=== PATIENT | male | born 1990 | race Caucasian/White ===

== ENCOUNTER 2017-05-20 12:42 | Outpatient (CLI) | payer OTHER | END 2017-05-20 12:43 | disposition home or self-care (01) | LOC: DI 12:42 | PROVIDERS: ATTEND Family Medicine | DX: R00.2 Palpitations (principal) | CPT/HCPCS: 93306 ==

== ENCOUNTER 2018-03-21 10:15 | Day surgery (SDC) | payer OTHER ==
[~2018-03-21 10:15] MED LIST: cefTRIAXone 1 GM VIAL ONE
[2018-03-21] MEDS ORDERED: LACTATED RINGERS 1,000 ML IV ONE (10:41)
--- NOTE | 2018-03-21 11:52 | ANESTHESIA ---
Pre-Anesthesia VS, & Labs - Diagnosis shoulder labral tear - Procedure right shoulder arthroscopy Vital Signs: Temp Pulse Resp BP Pulse Ox 36.7 C 86 16 155/73 H 98 03/21/18 10:29 03/21/18 10:29 03/21/18 10:29 03/21/18 10:29 03/21/18 10:29 Height 6 ft 4 in Weight (kg) 97.52 kg - NPO >8 hours Home Medications and Allergies Home Medications: Ambulatory Orders Pantoprazole [Protonix] 40 mg PO DAILY 03/05/18 Pantoprazole [Protonix] 40 mg PO DAILY 03/05/18 Allergies/Adverse Reactions: Allergies Allergy/AdvReac Type Severity Reaction Status Date / Time No Known Drug Allergies Allergy Verified 03/05/18 13:40 Anes History & Medical History - Anesthetic History Anesthesia Complications: reports: No previous complications Family history of Anesthesia Complications: Denies Family history of Malignant Hyperthermia: Denies - Medical History Cardiovascular: reports: None Pulmonary: reports: None Gastrointestinal: reports: GERD Urinary: reports: None Musculoskeletal: reports: Other Skin: reports: None Exam General: Alert Dental: WNL Mouth Openin Fingerbreadth Neck Mobility: Normal Mallampati classification: I Thyromental Distance: greater than 6 cm Respiratory: Lungs clear, Normal breath sounds, No respiratory distress, No accessory muscle use Cardiovascular: Normal S1, Normal S2, No murmurs Mental/Cognitive Status: Alert/Oriented X3, Normal for patient Cognitive Status: Within normal limits Plan Anesthesia Type: General Consent for Procedure(s) Verified and Reviewed: No Code Status: Attempt Resuscitation ASA classification: 2-Mild systemic disease Is this case an emergency?: No
[2018-03-21] MEDS ORDERED: ROPIVACAINE 0.5% PF 20 ML VIAL ONE (12:22)
[2018-03-21] MEDS ORDERED: BUPIVACAINE 0.25% PF 30 ML VIAL ONE (12:26)
[2018-03-21] MEDS ORDERED: EPINEPHrine 1 MG/ML AMP ONE (12:26)
[2018-03-21] MEDS ORDERED: BUPIVACAINE 0.25% PF 30 ML VIAL SUBQ ONE (14:03)
[2018-03-21] MEDS ORDERED: EPINEPHrine 1 MG/ML AMP IR ONE (14:03)
[2018-03-21] MEDS ORDERED: ACETAMINOPHEN 1,000 MG/100 ML 100 ML IV ONE (14:17)
[2018-03-21] MEDS ORDERED: LIDOCAINE-MPF 2% 5 ML VIAL IM ONE (14:17)
[2018-03-21] MEDS ORDERED: PROPOFOL 200 MG/20 ML VIAL IVP ONE (14:17)
[2018-03-21] MEDS ORDERED: fentaNYL 100 MCG/2 ML VIAL IVP ONE (14:17)
[2018-03-21] MEDS ORDERED: ROCURONIUM 50 MG/5 ML VIAL IVP ONE (14:17)
[2018-03-21] MEDS ORDERED: ONDANSETRON 4 MG/2 ML VIAL IVP PRN (15:33)
[2018-03-21] MEDS ORDERED: oxyCODONE 5 MG TABLET PO PRN (15:33)
--- NOTE | 2018-03-21 15:36 | OPERATIVE REPORT ---
Operative Report - General Procedure Date: 03/21/18 Planned Procedure: right shoulder arthroscopic labral repair and capsular shift Pre-Op Diagnosis: right shoulder posterior labral tear Procedure Performed: Right shoulder arthroscopic labral repair with capsular shift Post Op Diagnosis: same - Procedure Note Primary Surgeon: alfredo Secondary Surgeon: jenny Estimated Blood Loss (mL): 5 Complications: none - Other Other Information/Narrative: DETAILED PROCEDURE: Labral repair from 630 to 930 IMPLANTS: Arthrex knotless suture tack x3 POSTOPERATIVE PLAN: 0-2 weeks-Sling at all times. Pendulum exercises 5 times per day. 2-6 weeks-Passive range of motion with the following limits: FF to 120, ER to unlimited, abduction to 90. Must keep palm up when in FF 6-12 weeks-Active range of motion in all planes without limitation. Isometric rotator cuff strengthening is allowed 12-16 weeks-Gradually increase strengthening 16 weeks and beyond-Introduce dynamic activities EXAMINATION UNDER ANESTHESIA: ROM: Normal Anterior load and shift: Normal Posterior load and shift: Grade 2 with click Inferior sulcus: Normal ARTHROSCOPIC FINDINGS: Rotator interval: Normal Biceps tendon & SLAP: Normal Subscapularis: Normal Rotator Cuff: Normal HAGL: Normal Labrum: Posterior tear from 630-930. It was repaired with 3 anchors Glenoid Cartilage: Glad that in the same location as the labral tear. Loose cartilage was debrided Humeral Head Cartilage: Reverse Hill-Sachs lesion that was not engaging. No treatment INDICATION FOR SURGERY: 27-year-old male who is right-hand dominant and right shoulder affected he had an injury to the shoulder described as a subluxation episode 7 years ago and has had 5 recurrent subluxation episodes since that time. He additionally has pain when the posterior labrum is loaded. He is an avid weight software security consultant and his shoulder pain and instability is limiting his activities. Nonoperative managment failed to resolve symptoms. The risks, benefits, and alternatives were discussed. Risks included pain, bleeding, infection, damage to nearby structures, lack of symptom relief, implant complications, stiffness, need for further surgeries, DVT, PE, stroke, and even . He signed a written consent form. PROCEDURE IN DETAIL: The patient was met in the preoperative holding on the day of the procedure. Operative extremity was signed. Consent was verified. He desired to proceed. Regional anesthesia was obtained in the preoperative area. They were brought to the operating room and surrendered to anesthesia. Once general anesthesia was obtained they were placed in the lateral decubitus position with the operative side up. An axillary roll was placed and all bony prominences were well-padded. They were then prepped and draped in the standard sterile fashion. A surgical timeout was held to confirm the patient procedure, identity, procedure, laterality, allergies, images, and antibiotics. All were in agreement we proceeded. Balanced suspension was applied and a standard diagnostic arthroscopy was perfo rmed utilizing posterior and anterior superior portal sites. The anterior superior portal site was created under direct visualization. The findings of the diagnostic arthroscopy can be found above. A mid glenoid portal was then created under direct visualization bordering the subscapularis tendon. I then used a combination of high and low angled elevators to develop the labral tear and release it from off the glenoid neck. I then used to the pineapple rasp to finalize my release and abraded the bone to a bleeding bed. A sucker shaver was placed in the interval to debride any loose tissue and further abrade the glenoid neck. Any loose cartilage was debrided at that time. I then established a percutaneous 7:00 portal utilizing the Arthrex system. I then sequentially placed anchors at the 7:00 o'clock position. The suture was passed using an appropriate 45 degree suture lasso. The labrum was secured using knotless technique. Appropriate tension was confirmed with a probe and t he excess suture was cut. Using the same technique additional anchors were placed at 8:00 and 9:00 positions. Proper capsular tension was restored and a labral bumper was recreated. Balanced suspension was then released and final images were taken showing the humeral head centered in the glenoid. The portal sites were then closed with 3-0 Monocryl buried. Mastisol and Steri- Strips were applied. A sterile dressing and a sling was applied. He was awakened and transferred to the recovery room.
[2018-03-21] MEDS ORDERED: SCOPOLAMINE PATCH TOP ONE (16:41)
[2018-03-21] MEDS ORDERED: PROMETHAZINE 25 MG/1 ML VIAL ONE (16:54)
[2018-03-21 17:28] VITALS: BP 142/48
== END 2018-03-21 10:16 | disposition home or self-care (01) ==
LOC: SDS 10:15
PROVIDERS: ATTEND Orthopaedic Surgery
PROC: 0RQJ4ZZ Repair Right Shoulder Joint, Percutaneous Endoscopic Approach (ICD-10-PCS; principal; 2018-03-21 11:30)
DX: S43.491A Other sprain of right shoulder joint, initial encounter (principal); M24.411 Recurrent dislocation, right shoulder
CPT/HCPCS: 29999; A9270; C1713; J0131; J2795; J3490; J7120

== ENCOUNTER 2018-08-06 08:11 | Emergency (ER) | payer OTHER ==
--- NOTE | 2018-08-06 08:15 | ED Physician Documentation ---
PD HPI NVD - Stated complaint Stated Complaint: UNABLE TO EAT/VOMITING - History obtained from History obtained from: Patient - History of Present Illness Timing - onset: How many weeks ago (1) Timing - duration: Weeks (1or longer) Timing - details: Gradual onset, Waxing and waning (He states he has been having "stomach problems" for several months. He previously had been on Protonix for a keisha reduction related to reflux. This had helped him with symptoms quite a bit. He has been having frequent nausea as well as some intermittent crampy abdominal pains and feeling of constipation over the last few months. He had been to his primary care provider and had some stool softeners of docusate and also had MiraLAX added [id number] I believe. He states he does have soft stool intermittent the with formed stool otherwise. He denies having to push hard or feeling of rectal fullness. The last week or so he has been having a lot more cramping intermittently in the upper abdomen and feeling of gassiness. He has been nauseated with easy satiety and a fullness with eating. He states he has had less intake over the last week due to that. He is still able to drink fluids. He does get nauseous with those but is more tolerated. He does a lot of protein shakes for working out. He states he did eat a couple of meals yesterday with nausea but no vomiting. He did have a vomiting episode today.) Associated symptoms: Abdominal pain (intermittent crampy), Loss of appetite. No: Fever, Chest pain, Melena, Hematochezia Contributing factors: No: Sick contact, Bad food, Travel Similar symptoms before: No diagnosis (GERD and gastritis, but work up ongoing for other problems.) Recently seen: Clinic (He has been to his primary care several times in the last month or so related to stomach problems. They has a referral for a GI consult which the patient states is not until October. He has had testing of stool studies for H. pylori. He has had blood tests for celiac disease and inflammatory problems. He had been on Protonix and was switched to omeprazole a week ago.) Review of Systems Constitutional: denies: Fever Nose: denies: Rhinorrhea / runny nose, Congestion Throat: denies: Sore throat Respiratory: denies: Cough GI: reports: Nausea, Vomiting, Constipation (he feels he does not have regular BMs, but has had loose the past several days with use of docusate and miralax.). denies: Abdominal Swelling, Bloody / black stool : denies: Dysuria, Frequency PD PAST MEDICAL HISTORY - Past Medical History Cardiovascular: None Respiratory: None GI: GERD : None HEENT: Other Psych: None Musculoskeletal: Other Derm: None - Present Medications Home Medications: Ambulatory Orders Medication Instructions Recorded Confirmed Calcium Carbonate [Antacid] 0 mg 08/06/18 Docusate Calcium 0 mg 08/06/18 Lansoprazole [Prevacid] 15 mg PO DAILY #30 capsule 08/06/18 Omeprazole 0 mg 08/06/18 Ondansetron Odt [Zofran] 4 mg TL Q6H PRN #20 tablet 08/06/18 Polyethylene Glycol 3350 [Miralax] 17 gm PO DAILY PRN #1 bottle 08/06/18 Sucralfate [Carafate] 1 gm PO TID #40 tablet 08/06/18 - Allergies Allergies/Adverse Reactions: Allergies Allergy/AdvReac Type Severity Reaction Status Date / Time No Known Drug Allergies Allergy Verified 08/06/18 08:23 PD ED PE NORMAL - Vitals Vital signs reviewed: Yes - General General: Alert and oriented X 3, Well developed/nourished - HEENT HEENT: Pharynx benign - Neck Neck: Supple, no meningeal sign, No adenopathy - Cardiac Cardiac: RRR, No murmur - Respiratory Respiratory: Clear bilaterally - Abdomen Abdomen: Normal bowel sounds, Soft, Non tender, Non distended, No organomegaly - Male Male : Deferred - Rectal Rectal: Deferred - Back Back: No CVA TTP - Derm Derm: Normal color Results - Vitals Vitals: Vital Signs - 24 hr 08/06/18 08/06/18 08:20 09:37 Temperature 36.3 C L Heart Rate 87 78 Respiratory 16 18 Rate Blood Pressure 129/78 128/78 O2 Saturation 97 99 Oxygen O2 Source Room air PD MEDICAL DECISION MAKING - ED course Complexity details: considered differential (He is having nausea with less appetite and food intolerance. He had only 1 or 2 episodes of vomiting the past few days. He does sound likely to have some gastritis. There is no abdominal distention or fullness. The bowel sounds are somewhat hyperactive. There may be some element of constipation. There is no focal tenderness or no tenderness at all so I doubt imaging such as CT would be helpful. He has had testing for H. pylori the and gluten intolerance and celiac disease. I presume they did sed rate for inflammatory processes. He is getting a GI referral presumably for endoscopy which would make sense.), d/w patient Departure - Departure Disposition: 01 Home, Self Care Clinical Impression: Nausea & vomiting Qualifiers: Vomiting type: unspecified Vomiting Intractability: non-intractable Qualified Code(s): R11.2 - Nausea with vomiting, unspecified Gastritis Qualifiers: Gastritis type: unspecified gastritis Chronicity: unspecified Gastritis bl eeding: without bleeding Qualified Code(s): K29.70 - Gastritis, unspecified, without bleeding Condition: Stable Record reviewed to determine appropriate education?: Yes Instructions: ED Nausea Vomiting Follow-Up: TANO WARD [Primary Care Provider] - Prescriptions: Lansoprazole [Prevacid] 15 mg PO DAILY #30 capsule Ondansetron Odt [Zofran] 4 mg TL Q6H PRN #20 tablet PRN Reason: Nausea / Vomiting Polyethylene Glycol 3350 [Miralax] 17 gm PO DAILY PRN #1 bottle PRN Reason: Constipation Sucralfate [Carafate] 1 gm PO TID #40 tablet Comments: Your stomach symptoms could relate to side effects of the omeprazole. You could try lansoprazole, a different acid reducing medicine, and see if that does better. It may be just a your stomach is irritated and we can add to it sucralfate which coats the stomach to provide better or soothing of the stomach lining. Add ondansetron if needed for nausea. Regarding potential constipation, you could just take the MiraLAX that you have every the couple of hours through the day today and to you have really good loose bowel movement and then stop at that point. Then continue with a daily. Follow-up with your primary care if not improved over the next few days. Forms: Activity restrictions
[2018-08-06] MEDS ORDERED: MAG HYDROX/AL HYDROX/SIMETH 30 ML UDC PO STA (08:42)
[2018-08-06] MEDS ORDERED: ONDANSETRON ODT 4 MG TABLET TL STA (08:42)
[2018-08-06] MEDS ORDERED: LIDOCAINE VISCOUS 2% 15 ML UDC MM STA (08:42)
[2018-08-06 09:37] VITALS: BP 128/78
== END 2018-08-06 09:37 | disposition home or self-care (01) ==
LOC: ED 08:11
DX: K29.70 Gastritis, unspecified, without bleeding (principal)
CPT/HCPCS: 99283; A9270; Q0162

== ENCOUNTER 2018-09-24 19:30 | Emergency (ER) | payer OTHER ==
[2018-09-24 19:36] VITALS: BP 144/61
[2018-09-24] MEDS ORDERED: CHERRY SYRUP 10 ML UDC PO ONE (21:03)
[2018-09-24] MEDS ORDERED: DEXAMETHASONE 10 MG/ML VIAL PO STA (21:03)
[2018-09-24] MEDS ORDERED: PENICILLIN VK 250 MG TABLET PO STA (21:03)
--- NOTE | 2018-09-24 21:13 | ED Physician Documentation ---
History of Present Illness - Stated complaint Stated Complaint: FEVER/SORE THROAT - Chief complaint Chief Complaint: Heent - History obtained from History obtained from: Patient - History of Present Illness Timing: How many days ago (2) Pain level max: 7 Pain level now: 6 - Additonal information Additional information: 28-year-old male presents to the emergency department for sore throat for the past 2 days. Worsening today. Subjective fevers at home. No cough. No rhinorrhea or congestion. No nausea or vomiting. No abdominal pain. Worse with swallowing. Nothing makes it better. Review of Systems Nose: denies: Congestion GI: denies: Vomiting Skin: denies: Rash Musculoskeletal: denies: Neck pain, Back pain Neurologic: denies: Headache PD PAST MEDICAL HISTORY - Past Medical History Past Medical History: Yes Cardiovascular: None Respiratory: None GI: GERD : None HEENT: Other Psych: None Musculoskeletal: Other Derm: None - Past Surgical History Past Surgical History: Yes Ortho: Arthroscopic surgery - Present Medications Home Medications: Ambulatory Orders Medication Instructions Recorded Confirmed Calcium Carbonate [Antacid] 0 mg 08/06/18 Docusate Calcium 0 mg 08/06/18 Lansoprazole [Prevacid] 15 mg PO DAILY #30 capsule 08/06/18 Omeprazole 0 mg 08/06/18 Ondansetron Odt [Zofran] 4 mg TL Q6H PRN #20 tablet 08/06/18 Polyethylene Glycol 3350 [Miralax] 17 gm PO DAILY PRN #1 bottle 08/06/18 Sucralfate [Carafate] 1 gm PO TID #40 tablet 08/06/18 Ibuprofen [Motrin] 800 mg PO Q8H PRN #30 tablet 09/24/18 Penicillin V Potassium 500 mg PO Q6HR #40 tablet 09/24/18 - Allergies Allergies/Adverse Reactions: Allergies Allergy/AdvReac Type Severity Reaction Status Date / Time No Known Drug Allergies Allergy Verified 08/06/18 08:23 - Social History Does the pt smoke?: No Smoking Status: Never smoker Does the pt drink ETOH?: No Does the pt have substance abuse?: No - Immunizations Immunizations are current?: Yes PD ED PE NORMAL - Vitals Vital signs reviewed: Yes - General General: Alert and oriented X 3, No acute distress - HEENT HEENT: Ears normal, Moist mucous membranes, Other (Tonsillar swelling with white tonsillar exudates. Uvula midline. Normal phonation. No trismus.) - Neck Neck: Supple, no meningeal sign, Other (Shotty anterior lymphadenopathy) - Cardiac Cardiac: RRR - Respiratory Respiratory: No respiratory distress, Clear bilaterally - Abdomen Abdomen: Soft, Non tender, Non distended - Derm Derm: Warm and dry, No rash - Neuro Neuro: Alert and oriented X 3 Results - Vitals Vitals: Vital Signs - 24 hr 09/24/18 19:33 Temperature 37 C Heart Rate 93 Respiratory 18 Rate Blood Pressure 144/61 H O2 Saturation 99 Oxygen O2 Source Room air - Labs Labs: Laboratory Tests 09/24/18 19:37 Group A Strep Rapid Negative PD MEDICAL DECISION MAKING - ED course Complexity details: reviewed results, considered differential, d/w patient ED course: 28-year-old male with what appears to be streptococcal pharyngitis clinically. Will place on antibiotics. Given dexamethasone here. Tolerating p.o. without difficulty. He is well-appearing, nontoxic. Afebrile. No evidence of peritonsillar or retropharyngeal abscess. Patient counseled regarding signs and symptoms for which I believe and urgent re-evaluation would be necessary. Patient with good understanding of and agreement to plan and is comfortable going home at this time This document was made in part using voice recognition software. While efforts are made to proofread this document, sound alike and grammatical errors may occur. Departure - Departure Disposition: 01 Home, Self Care Clinical Impression: Strep pharyngitis Condition: Good Instructions: ED Strep Pharyngitis Poss Follow-Up: your,doctor in 1 week [Other] Prescriptions: Penicillin V Potassium 500 mg PO Q6HR #40 tablet Ibuprofen [Motrin] 800 mg PO Q8H PRN #30 tablet PRN Reason: PAIN &/OR FEVER Comments: Drink plenty of fluids. Return if you worsen. Follow-up with your doctor in 1 week if not better. Forms: Activity restrictions Discharge Date/Time: 09/24/18 21:18
== END 2018-09-24 21:18 | disposition home or self-care (01) ==
LOC: ED 19:30
DX: J02.0 Streptococcal pharyngitis (principal)
CPT/HCPCS: 87070; 87430; 99283; 99284; A9270